=== PATIENT | female | born 1950 | race Caucasian/White ===

== ENCOUNTER 2018-03-16 16:16 | Inpatient (IN) | payer OTHER ==
[~2018-03-16] VITALS: Ht 152.4 cm; Wt 77.1 kg
[2018-03-16] MEDS ORDERED: SYNTHROID50 MCG (17:09)
[2018-03-16] MEDS ORDERED: CIPRO500 MG (17:10)
[2018-03-16] MEDS ORDERED: PREDNISONE5 MG/1 ML (17:11)
[2018-03-16] MEDS ORDERED: SINGULAIR 10MG10 MG (17:12)
== END 2018-03-23 14:30 | disposition home or self-care (01) | DRG 203 ==
LOC: ER 16:16 → EDBD 16:38 → ER 16:38 → MEDJ 03-17 12:58 → SEC-K 03-17 12:58 → MEDJ 03-17 13:39
PROC: 3E0F7GC Introduction of Other Therapeutic Substance into Respiratory Tract, Via Natural or Artificial Opening (ICD-10-PCS; principal; 2018-03-17)
PROC: BW24ZZZ Computerized Tomography (CT Scan) of Chest and Abdomen (ICD-10-PCS; 2018-03-17)
PROC: 4A033R1 Measurement of Arterial Saturation, Peripheral, Percutaneous Approach (ICD-10-PCS; 2018-03-22)
DX: J45.41 Moderate persistent asthma with (acute) exacerbation (principal); R09.02 Hypoxemia; E03.8 Other specified hypothyroidism

== ENCOUNTER 2018-05-15 07:30 | Inpatient (IN) | payer OTHER ==
[~2018-05-15] VITALS: Ht 152.4 cm; Wt 77.1 kg
[~2018-05-15 07:30] MED LIST: CIPRO500 MG; PREDNISONE5 MG/1 ML; SINGULAIR 10MG10 MG; SYNTHROID50 MCG
[2018-05-15] MEDS ORDERED: GABAPENTIN800 MG PO (10:19)
[2018-05-15] MEDS ORDERED: LIPITOR40 MG PO (10:19)
[2018-05-23] MEDS ORDERED: PERCOCET 5-3251 EACH PO (16:45)
[2018-05-23] MEDS ORDERED: DUI500 PO (16:45)
[2018-05-23] MEDS ORDERED: ELIQUIS2.5 MG PO (16:45)
== END 2018-05-23 19:07 | disposition home or self-care (01) | DRG 470 ==
LOC: O/R 05-21 06:12 → SURH 05-21 06:12
PROVIDERS: ADMIT Orthopaedic Surgery
PROC: 0MNN0ZZ Release Right Knee Bursa and Ligament, Open Approach (ICD-10-PCS; 2018-05-21)
PROC: 0SRC0JZ Replacement of Right Knee Joint with Synthetic Substitute, Open Approach (ICD-10-PCS; principal; 2018-05-21 09:45)
DX: M17.11 Unilateral primary osteoarthritis, right knee (principal); D62 Acute posthemorrhagic anemia; E03.8 Other specified hypothyroidism; E66.09 Other obesity due to excess calories; M81.0 Age-related osteoporosis without current pathological fracture

== ENCOUNTER 2018-09-09 18:39 | Emergency (ER) | payer OTHER ==
[~2018-09-09] VITALS: Ht 152.4 cm; Wt 80.7 kg
[~2018-09-09 18:39] MED LIST changes: +DUI500 PO; +ELIQUIS2.5 MG PO; +GABAPENTIN800 MG PO; +LIPITOR40 MG PO; +PERCOCET 5-3251 EACH PO
[2018-09-09] MEDS ORDERED: SYMBICORT 16010.2 GM (19:15)
[2018-09-10] MEDS ORDERED: BUDESONIDE0.5 MG/2 M IH (02:00)
[2018-09-10] MEDS ORDERED: IPRATROPIU0.2 MG/1 M IH (02:00)
[2018-09-10] MEDS ORDERED: LEVALBUTER1.25 MG/3 IH (02:00)
== END 2018-09-10 01:56 | disposition home or self-care (01) ==
LOC: ER 18:39
DX: J45.901 Unspecified asthma with (acute) exacerbation (principal)